=== PATIENT | female | born 1945 | race Caucasian/White ===

== ENCOUNTER 2018-11-28 07:21 | Day surgery (SDC) | payer OTHER ==
[~2018-11-28] VITALS: Ht 157.5 cm; Wt 72.8 kg
[~2018-11-28 07:21] MED LIST: ALBU2.5V5 INH; ALBU90OI6 INH; ASPI81CH PO; ASPI81EC PO; ATOR20 PO; AZIT500 PO; Aspirin EC81 MG PO; BUDE10.22 INH; CALCA500CH PO; CALCAVITD PO; CARV3.125 PO; CEFU500 PO; CEPH500 PO; Calcium + Vita1 EACH PO; DIAZ10 PO; DIGO.125 PO; Daily Multiple1 EACH PO; FISH OIL 1,0001 EAC1 PO; FISH1000 PO; FLUO10 PO; FLUO20 PO; FLUOXETINE PO; GABA300 PO; GENTLELAX119 GM PO; LISI5 PO; MAGNESIUM400 M1 PO; MAGOXI400 PO; MELO7.5 PO; MORP15ER PO; MULVITMIND PO; OXYB5 PO; OXYC15ER PO; PREG150 PO; Prozac40 MG PO; ROPI1 PO; Roxicodone15 MG PO; SLEEPING PILL PO; SPIR25 PO; TOCO400 PO; VENL75ER PO; Ventolin Soln3 ML INH; WARF6 PO; WARF7.5 PO
[2018-12-11] MEDS ORDERED: ALBU90OI INH (14:32)
== END 2018-11-28 10:07 | disposition home or self-care (01) ==
LOC: ORSCSDS 07:21
PROVIDERS: Ophthalmology
PROC: 08RJ3JZ Replacement of Right Lens with Synthetic Substitute, Percutaneous Approach (ICD-10-PCS; principal; 2018-11-28 09:00)
DX: H25.11 Age-related nuclear cataract, right eye (principal); I10 Essential (primary) hypertension; I48.91 Unspecified atrial fibrillation; M79.7 Fibromyalgia; Z87.891 Personal history of nicotine dependence; Z79.899 Other long term (current) drug therapy
CPT/HCPCS: J2001; J2250; J3010; J3301; J7120; V2632

== ENCOUNTER 2018-12-19 08:41 | Day surgery (SDC) | payer OTHER ==
[~2018-12-19] VITALS: Ht 157.5 cm; Wt 71.9 kg
[~2018-12-19 08:41] MED LIST changes: +ALBU90OI INH
--- NOTE | 2018-12-19 09:21 | NUR ---
12/19/18 0921 Rahul Vivar CALL LIGHT WITHIN REACH
== END 2018-12-19 10:24 | disposition home or self-care (01) ==
LOC: ORSCSDS 08:41
PROVIDERS: Ophthalmology
PROC: 08RK3JZ Replacement of Left Lens with Synthetic Substitute, Percutaneous Approach (ICD-10-PCS; principal; 2018-12-19 10:00)
DX: H25.12 Age-related nuclear cataract, left eye (principal); I10 Essential (primary) hypertension; Z79.01 Long term (current) use of anticoagulants; Z79.899 Other long term (current) drug therapy
CPT/HCPCS: J2250; J3010; J3301; J7040; J7120; V2632

== ENCOUNTER → 2019-01-09 | Outpatient (CLI) | payer OTHER ==
[2019-01-09 17:09] LABS: International Normalized Ratio 1.87; Prothrombin Time Results 18.7 Sec (9.7-11.5)
== END | disposition home or self-care (01) ==
LOC: LAB EV 14:22 → LAB SHORT 14:22
PROVIDERS: Physician Assistant
DX: Z79.01 Long term (current) use of anticoagulants (principal); Z51.81 Encounter for therapeutic drug level monitoring; L98.9 Disorder of the skin and subcutaneous tissue, unspecified
CPT/HCPCS: 85610; 87070; 87205

== ENCOUNTER 2019-03-13 16:41 | Emergency (ER) | payer OTHER ==
[~2019-03-13] VITALS: Ht 157.5 cm; Wt 68.0 kg
[2019-03-13 18:00] LABS: Prothrombin Time Results 78.7 Sec (9.7-11.5)
[2019-03-13 18:02] LABS: International Normalized Ratio 9.07
== END 2019-03-13 18:00 | disposition home or self-care (01) ==
LOC: ER 16:41
PROVIDERS: Physician Assistant
DX: R79.1 Abnormal coagulation profile (principal); I11.0 Hypertensive heart disease with heart failure; I50.9 Heart failure, unspecified; I48.91 Unspecified atrial fibrillation; Z87.891 Personal history of nicotine dependence
CPT/HCPCS: 36415; 85610; 96365; 99283-25; J3430

== ENCOUNTER 2020-02-25 14:20 | Emergency (ER) | payer OTHER ==
[~2020-02-25] VITALS: Ht 162.6 cm; Wt 56.7 kg
[~2020-02-25 14:20] MED LIST changes: +CEFU500T30 PO; +ROXICODONE15 MG PO
[2020-02-25 15:19] LABS: BASOPHILS ABSOLUTE AUTO 0.07 K/mm3 (0.00-0.23); BASOPHILS PERCENT AUTO 1 % (0-2); EOSINOPHILS ABSOLUTE AUTO 0.35 K/mm3 (0.00-0.68); EOSINOPHILS PERCENT AUTO 4 % (0-6); Hematocrit 44.6 % (33.0-51.0); IMMATURE GRAN ABSOLUTE AUTO 0.02 K/mm3 (0.00-0.10); IMMATURE GRAN PERCENT AUTO 0 % (0-1); LYMPHOCYTES ABSOLUTE AUTO 2.06 K/mm3 (0.84-5.20); LYMPHOCYTES PERCENT AUTO 22 % (21-46); MONOCYTES ABSOLUTE AUTO 0.48 K/mm3 (0.16-1.47); MONOCYTES PERCENT AUTO 5 % (4-13); Mean Corpuscular HGB 28.5 pg (26.0-34.0); Mean Corpuscular HGB Conc 33.6 g/dL (31.5-36.5); Mean Corpuscular Volume 85 fL (80-100); Mean Platelet Volume 10.3 fL (9.1-12.4); NEUTROPHILS ABSOLUTE AUTO 6.57 K/mm3 (1.96-9.15); NEUTROPHILS PERCENT AUTO 69 % (41-73); Platelet Count 266 K/mm3 (150-400); RDW Coefficient Variation 15.4 % (11.7-14.2); RDW Standard Deviation 47.5 fL (35.1-46.3); Red Blood Cell Count 5.26 M/mm3 (3.80-5.20); White Blood Cell Count 9.55 K/mm3 (4.00-11.30)
[2020-02-25 15:41] LABS: Alanine Aminotransfer (ALT/SGP 29 U/L (12-78); Albumin, Blood 3.8 g/dL (3.4-5.0); Albumin/Globulin Ratio 0.8 (0.8-1.8); Alk Phos 91 U/L (50-136); Anion Gap 6 mmol/L (6-16); Aspartate Aminotrans (AST/SGOT 43 U/L (12-37); Bilirubin, Total 0.6 mg/dL (0.1-1.0); Blood Urea Nitrogen 24 mg/dL (8-24); Bun/Creatinine Ratio 36.9 (12.0-20.0); CO2, Blood 28 mmol/L (21-32); Calcium, Blood 9.5 mg/dL (8.5-10.1); Chloride, Blood 102 mmol/L (98-108); Creatinine, Blood 0.65 mg/dL (0.40-1.00); Globulin, Blood 4.5 g/dL (2.2-4.0); Glomerular Filtration Rate >60 (60-); Glucose, Blood 96 mg/dL (70-99); Potassium, Blood 4.2 mmol/L (3.5-5.5); Sodium, Blood 136 mmol/L (136-145); Total Protein, Blood 8.3 g/dL (6.4-8.2); Troponin I <0.015 ng/mL (0.000-0.040)
[2020-02-25 21:39] LABS: Influenza A, PCR Negative (NEGATIVE); Influenza B, PCR Negative (NEGATIVE); Resp Syncytial Virus, PCR Negative (NEGATIVE); SARS-Cov-2 (COVID-19) PCR, MMC Negative (NEGATIVE)
[2020-02-25 22:17] LABS: Prothrombin Time Results 41.3 Sec (9.7-11.5)
[2020-02-25 22:18] LABS: International Normalized Ratio 4.19
[2020-02-25 22:32] LABS: Source, Urine Clean Catch
[2020-02-25 22:37] LABS: Appearance, Urine Clear (Clear); Bilirubin, Urine Neg (Neg); Blood, Urine 4+ (Neg); Color, Urine Yellow (P-Yellow); Glucose Qualitative, Urine Neg (Neg); Ketones, Urine 1+ (Neg); Leukocyte Esterase, Urine 3+ (Neg); Nitrite, Urine Neg (Neg); Protein, Urine 3+ (Neg); Urobilinogen, Urine NORM (Normal)
[2020-02-25] MEDS ORDERED: MUSCLE RELAXER (22:38)
[2020-02-25] MEDS ORDERED: TIZA4 (22:39)
[2020-02-25 22:44] LABS: Squamous Epithelial Cells Rare /hpf (Few)
[2020-02-25 22:45] LABS: Bacteria Rare /hpf
[2020-02-25] MEDS ORDERED: CEPH500 PO (22:54)
== END 2020-02-25 23:15 | disposition home or self-care (01) ==
LOC: ER 14:20
PROVIDERS: Emergency Medicine; Physician Assistant
DX: N39.0 Urinary tract infection, site not specified (principal); R79.1 Abnormal coagulation profile; R06.02 Shortness of breath; I48.91 Unspecified atrial fibrillation; Z20.828 Contact with and (suspected) exposure to other viral communicable diseases; Z79.01 Long term (current) use of anticoagulants; Z91.09 Other allergy status, other than to drugs and biological substances; Z79.899 Other long term (current) drug therapy
CPT/HCPCS: 0241U; 71046; 80053; 81001; 84484; 85025; 85610; 87077; 87086; 87186; 93005; 93010; 96361; 96365; 99284-25; J0696; J7030

== ENCOUNTER → 2023-08-09 | Outpatient (CLI) | payer OTHER | END | disposition home or self-care (01) | LOC: LAB SHORT 16:30 → LAB 16:30 | DX: R30.0 Dysuria (principal) ==

== ENCOUNTER 2024-05-07 11:38 | Inpatient (IN) | payer OTHER ==
[~2024-05-07] VITALS: Ht 160 cm; Wt 61.0 kg
[~2024-05-07 11:38] MED LIST changes: +MUSCLE RELAXER; +TIZA4
[2024-05-07] MEDS ORDERED: Morphine Sulfate 4 MG/1 ML Injection IV ONE (12:35)
[2024-05-07] MEDS ORDERED: XARELTO20 M1 PO (14:10)
[2024-05-07] MEDS ORDERED: OxyCODONE 5 mg/Acetamin 325 mg TABLET PO PRN (15:45)
[2024-05-07] MEDS ORDERED: QUETIAPINE FUMA25 MG PO (15:47)
[2024-05-07] MEDS ORDERED: FLU VACC TS2024-25(6MOS UP)/PF 45 MCG/0.5 ML SYRINGE IM SCH (15:50)
[2024-05-07] MEDS ORDERED: Carvedilol 3.125 MG Tab PO SCH (17:00)
[2024-05-07] MEDS ORDERED: HYDROmorphone HCl/Pf 1MG SYR IV PRN (18:45)
[2024-05-07 18:47] LABS: BASOPHILS ABSOLUTE AUTO 0.05 K/mm3 (0.00-0.23); BASOPHILS PERCENT AUTO 0 % (0-2); EOSINOPHILS ABSOLUTE AUTO 0.01 K/mm3 (0.00-0.68); EOSINOPHILS PERCENT AUTO 0 % (0-6); Hematocrit 44.8 % (33.0-51.0); Hemoglobin 14.7 g/dL (11.5-16.0); IMMATURE GRAN ABSOLUTE AUTO 0.07 K/mm3 (0.00-0.10); IMMATURE GRAN PERCENT AUTO 1 % (0-1); LYMPHOCYTES ABSOLUTE AUTO 1.48 K/mm3 (0.84-5.20); LYMPHOCYTES PERCENT AUTO 11 % (21-46); MONOCYTES ABSOLUTE AUTO 0.46 K/mm3 (0.16-1.47); MONOCYTES PERCENT AUTO 3 % (4-13); Mean Corpuscular HGB 29.6 pg (26.0-34.0); Mean Corpuscular HGB Conc 32.8 g/dL (31.5-36.5); Mean Corpuscular Volume 90 fL (80-100); Mean Platelet Volume 11.1 fL (9.1-12.4); NEUTROPHILS ABSOLUTE AUTO 11.73 K/mm3 (1.96-9.15); NEUTROPHILS PERCENT AUTO 85 % (41-73); Platelet Count 183 K/mm3 (150-400); RDW Coefficient Variation 13.8 % (11.7-14.2); RDW Standard Deviation 45.7 fL (35.1-46.3); Red Blood Cell Count 4.97 M/mm3 (3.80-5.20)
[2024-05-07 19:02] LABS: Albumin, Blood 3.8 g/dL (3.4-5.0); Albumin/Globulin Ratio 0.9 (0.8-1.8); Bilirubin, Total 0.9 mg/dL (0.1-1.0); Bun/Creatinine Ratio 29.2 (12.0-20.0); Calcium, Blood 9.4 mg/dL (8.5-10.1); Creatinine, Blood 0.93 mg/dL (0.40-1.00); Globulin, Blood 4.4 g/dL (2.2-4.0); Potassium, Blood 4.5 mmol/L (3.5-5.5); Total Protein, Blood 8.2 g/dL (6.4-8.2)
--- NOTE | 2024-05-07 19:31 | NUR ---
ARRIVAL/SHIFT SUMMARY PT BROUGHT UP FROM THE ER VIA GURNEY, SLIDER SHEET TRANSFER TO HER BED WITH 3 STAFF ASSISTANCE, PT REPORTS PAIN L HIP/ARM, CHECKED MAR AND MEDICATED PER EMAR FOR PAIN. DISCUSSED PLAN OF CARE WITH HER SON (ANNE MARIE) WHO SHE LIVES WITH AND IS HER DECISION MAKER, HX OF DEMENTIA AND IS FORGETFUL. SON STATES SHE IS USUALLY VERY ACTIVE T/O THE DAY. REPORT GIVEN TO MEHNAZ RN.
[2024-05-07 19:53] VITALS: BP 113/91
[2024-05-07] MEDS ORDERED: QUEtiapine Fumarate 50 MG TAB PO SCH (21:00)
[2024-05-07] MEDS ORDERED: QUEtiapine Fumarate 25 MG Tab PO SCH (21:00)
[2024-05-08] VITALS (23 sets, daily range): BP systolic 99–139; BP diastolic 52–117
--- NOTE | 2024-05-08 06:44 | NUR ---
SHIFT SUMMARY PT ER ADMIT AT SHIFT CHANGE FOR A LEFT HIP FRACTURE AFTER AND A GLF AT HOME. PT ALSO HAS LEFT WRIST PAIN AND SWELLING. PAIN MANAGED T/O THE NIGHT WITH MEDS PER EMAR. PT HAS BEEN NPO. PLAN IS FOR SURGERY TODAY. PUREWICK IN PLACE. PT HAS BEEN ABLE TO VOID SPONTANEOUSLY, BUT SMALL AMOUNT IN PUREWICK CANNISTER. PT HAD ONE INCONTINENT VOID AND VOIDED ABOUT 125 MLS INTO CANNISTER. BLADDER SCAN REVEALED 399 THIS AM. PT ASYMPTOMATIC. NO ABD DISTENTION, AND PT REPORTS NO DISCOMFORT OR URGE TO VOID. AFTER BLADDER SCAN PT REPORTED THAT SHE DID NOT WANT A CATHETER, AND WANTED TO SEE IF SHE CAN CONTINUE TO VOID ON HER OWN. VITALS ARE STABLE. PT HAS SOME CONFUSION AT BASELINE. BED IN LOWEST POSITION, CALL LIGHT WITHIN REACH.
[2024-05-08 06:51] LABS: BASOPHILS ABSOLUTE AUTO 0.02 K/mm3 (0.00-0.23); BASOPHILS PERCENT AUTO 0 % (0-2); EOSINOPHILS ABSOLUTE AUTO 0.05 K/mm3 (0.00-0.68); EOSINOPHILS PERCENT AUTO 1 % (0-6); Hematocrit 38.1 % (33.0-51.0); Hemoglobin 12.8 g/dL (11.5-16.0); IMMATURE GRAN ABSOLUTE AUTO 0.02 K/mm3 (0.00-0.10); IMMATURE GRAN PERCENT AUTO 0 % (0-1); LYMPHOCYTES ABSOLUTE AUTO 2.34 K/mm3 (0.84-5.20); LYMPHOCYTES PERCENT AUTO 24 % (21-46); MONOCYTES ABSOLUTE AUTO 0.71 K/mm3 (0.16-1.47); MONOCYTES PERCENT AUTO 7 % (4-13); Mean Corpuscular HGB 29.8 pg (26.0-34.0); Mean Corpuscular HGB Conc 33.6 g/dL (31.5-36.5); Mean Corpuscular Volume 89 fL (80-100); Mean Platelet Volume 11.1 fL (9.1-12.4); NEUTROPHILS ABSOLUTE AUTO 6.69 K/mm3 (1.96-9.15); NEUTROPHILS PERCENT AUTO 68 % (41-73); Platelet Count 190 K/mm3 (150-400); Red Blood Cell Count 4.29 M/mm3 (3.80-5.20); White Blood Cell Count 9.83 K/mm3 (4.00-11.30)
[2024-05-08 07:06] LABS: Albumin, Blood 3.2 g/dL (3.4-5.0); Albumin/Globulin Ratio 0.8 (0.8-1.8); Bilirubin, Total 1.1 mg/dL (0.1-1.0); Bun/Creatinine Ratio 26.8 (12.0-20.0); Calcium, Blood 9.2 mg/dL (8.5-10.1); Creatinine, Blood 0.82 mg/dL (0.40-1.00); Total Protein, Blood 7.2 g/dL (6.4-8.2)
[2024-05-08] MEDS ORDERED: CeFAZolin Sodium 2,000 MG in NS 100 ML IV SCH (08:05)
[2024-05-08] MEDS ORDERED: Tranexamic Acid 100 ML IV SCH ×2 (08:05)
[2024-05-08] MEDS ORDERED: Lisinopril 5 MG Tab PO SCH (09:00)
[2024-05-08] MEDS ORDERED: FLUoxetine HCL 20 MG CAP PO SCH (09:00)
[2024-05-08] MEDS ORDERED: Enoxaparin 40 MG/0.4 ML SYR SC SCH (09:00)
[2024-05-08] MEDS ORDERED: Lactated Ringer's 1,000 ML IV SCH ×2 (10:25→13:30)
[2024-05-08] MEDS ORDERED: Acetaminophen 325 MG TABLET PO PRN (10:25)
[2024-05-08] MEDS ORDERED: Ropivacaine 0.5% HCl/Pf 123.125 MG,EPINEPHrine HCL 0.25 MG,Ketorolac Tromethamine 15 MG... INFIL SCH (13:30)
[2024-05-08] MEDS ORDERED: Ondansetron HCl 2 MG / ML 2ML Vial ONE (13:34)
[2024-05-08] MEDS ORDERED: FentaNYL Citrate 50 MCG/ML 2 ML Injection ONE ×2 (13:34→15:30)
[2024-05-08] MEDS ORDERED: propofoL 20 ML IV ONE (13:34)
[2024-05-08] MEDS ORDERED: Ketorolac Tromethamine 30mg Vial ONE (13:34)
[2024-05-08] MEDS ORDERED: Dexamethasone Sod Phos 10 MG/ML 1ML VIAL ONE (13:34)
[2024-05-08] MEDS ORDERED: CeFAZolin Sodium 2,000 MG VIAL ONE (13:45)
--- NOTE | 2024-05-08 14:03 | NUR ---
PT INTO SDS VIA BED FOR LEFT HIP ARTHROPLASTY Patient confirms NPO status and agrees with scheduled surgery PER SURGICAL FLOOR RN. Pre-Op teaching done. Pt verbalizes understanding. History, Chart, Medications and Allergies reviewed before start of procedure. PT'S SON "MIRA" AT BS. UNSURE IF HE IS THE POA BUT IS ONLY NEXT OF KIN AND IS ON HER BANK ACCOUNT. PT W/ SOME DEMENTIA. ABLE TO STATE NAME AND BUT DOES REPEAT THINGS FREQUENTLY AND HAS A DIFFICULT TIME FINDING HER WORDS
--- NOTE | 2024-05-08 14:42 | NUR ---
PT TO OR AT ABOUT 1345, PT'S SON AT BEDSIDE
[2024-05-08] MEDS ORDERED: Rocuronium Bromide 10 MG/ML 5ML Injection IV ONE (15:08)
[2024-05-08] MEDS ORDERED: Phenylephrine HCl 100 MCG/ML-NS 10MLSYR (1MG/10ML) ONE (15:29)
--- NOTE | 2024-05-08 15:34 | NUR ---
05/08/24 1534 Amita Ramos PATIENT ARRIVED TO OR WITH PEREZ CATHETER IN PLACE.
[2024-05-08] MEDS ORDERED: Sugammadex Sodium 200 MG/2ML SDV (100 MG/ML) ONE (16:08)
[2024-05-08] MEDS ORDERED: Ipratropium/Albuterol SulF 2.5-0.5MG/3 ML Amp ONE (17:00)
[2024-05-08] MEDS ORDERED: Ipratropium/Albuterol SulF 2.5-0.5MG/3 ML Amp INH ONE (17:00)
--- NOTE | 2024-05-08 17:45 | NUR ---
PT TRANSFERED WITH DENTURES IN MOUTH
--- NOTE | 2024-05-08 19:14 | NUR ---
POST OP: REPORT RECEIVED FROM HIGH LIFT OPERATOR. PT TO UNIT AT ABOUT 1815, PT IS A/O, SURGICAL SITE WNL, SENSATION INTACT. LUNGS ARE CLEAR, SP02 98% ON 2L. HR IS TRENDING 50-160 ON BI OX, PACU REPORTED PT IN AFIB, WHICH IS PT BASELINE. HARD TO GET ACCURATE READING. PT DENIES CP, SOB. DR. RAMOS CALLED AND MADE AWARE OF THE ABOVE. OK TO GIVE 2ND DOSE OF SCHEDULED CARVEDILOL, SEE EMAR. NO TELE NEEDED AT THIS TIME. PT ABLE TO SIT UP AND EAT DINNER. PEREZ DRAINING TO GRAVITY. BED ALARM ON FOR SAFETY AND PT SON AT BEDSIDE. BEDSIDE REPORT PASSED TO ESTELA DARBY RN.
[2024-05-09] VITALS (7 sets, daily range): BP systolic 84–129; BP diastolic 43–76
--- NOTE | 2024-05-09 05:19 | NUR ---
SHIFT SUMMARY NOC. PT POD 1 FOR LEFT YURI HIP. PT A/O X3, BUT FORGETFUL. BED ALARM SET FOR SAFETY, PT DID NOT ATTEMPT TO GET OOB ALONE. PT HAS PEREZ DRAINING TO GRAVITY AND PRODUCING URINE. FLUIDS RUNNING PER EMAR. PT MEDICATED WITH TYLENOL X1 THIS SHIFT, PT REPORTED PAIN TOLERABLE. PT RESTED WITH EYES CLOSED AND CALL LIGHT IN REACH.
[2024-05-09 06:28] LABS: BASOPHILS ABSOLUTE AUTO 0.02 K/mm3 (0.00-0.23); BASOPHILS PERCENT AUTO 0 % (0-2); EOSINOPHILS PERCENT AUTO 0 % (0-6); Hematocrit 33.5 % (33.0-51.0); Hemoglobin 10.9 g/dL (11.5-16.0); IMMATURE GRAN ABSOLUTE AUTO 0.05 K/mm3 (0.00-0.10); IMMATURE GRAN PERCENT AUTO 0 % (0-1); LYMPHOCYTES ABSOLUTE AUTO 1.09 K/mm3 (0.84-5.20); LYMPHOCYTES PERCENT AUTO 7 % (21-46); MONOCYTES ABSOLUTE AUTO 0.79 K/mm3 (0.16-1.47); MONOCYTES PERCENT AUTO 5 % (4-13); Mean Corpuscular HGB 29.4 pg (26.0-34.0); Mean Corpuscular HGB Conc 32.5 g/dL (31.5-36.5); Mean Corpuscular Volume 90 fL (80-100); Mean Platelet Volume 10.6 fL (9.1-12.4); NEUTROPHILS ABSOLUTE AUTO 14.16 K/mm3 (1.96-9.15); NEUTROPHILS PERCENT AUTO 88 % (41-73); Platelet Count 140 K/mm3 (150-400); RDW Coefficient Variation 13.8 % (11.7-14.2); RDW Standard Deviation 45.9 fL (35.1-46.3); Red Blood Cell Count 3.71 M/mm3 (3.80-5.20); White Blood Cell Count 16.11 K/mm3 (4.00-11.30)
[2024-05-09 07:03] LABS: Albumin, Blood 2.6 g/dL (3.4-5.0); Albumin/Globulin Ratio 0.8 (0.8-1.8); Bilirubin, Total 0.6 mg/dL (0.1-1.0); Bun/Creatinine Ratio 27.8 (12.0-20.0); Calcium, Blood 8.5 mg/dL (8.5-10.1); Creatinine, Blood 0.97 mg/dL (0.40-1.00); Globulin, Blood 3.4 g/dL (2.2-4.0); Potassium, Blood 4.5 mmol/L (3.5-5.5)
--- NOTE | 2024-05-09 09:15 | NUR ---
DR. BRADSHAW ROUNDED ON PT. OK TO SALINE LOCK PER DR. BRADSHAW.
[2024-05-09] MEDS ORDERED: OxyCODONE HCL 5 MG TAB PO PRN (10:20)
[2024-05-09] MEDS ORDERED: Acetaminophen 500 MG Tab PO SCH (16:00)
[2024-05-09] MEDS ORDERED: Lactated Ringer's 500 ML IV ONE (16:45)
--- NOTE | 2024-05-09 19:50 | NUR ---
SHIFT SUMMARY PT IS POD#1 FROM L YURI HIP. PAIN MANAGED WITH OXY AND TYLENOL. THIS EVENING PT IS COMPLAINING OF A HEADACHE. PT NOTED TO HAVE A LOW BP OF 85/43 HR OF 84 AT 1538, NS 500ML BOLUS GIVEN. BOLUS FINISHED AT APPROXIMATELY 1905, BP REMAINS LOW 98/58, PT ASYMPTOMATIC. BEDSIDE REPORT GIVEN TO SONG DARBY RN, SONG AWARE OF CONTINUED LOW BP. CALL LIGHT WITHIN REACH.
[2024-05-10 05:00] VITALS: BP 110/61
--- NOTE | 2024-05-10 05:09 | NUR ---
SHIFT SUMMARY AMI WAS ALERT AND ORIENTED X2 ON ASSESMENT. PT DRESSING TO L HIP C/D/I, DISTAL SENSATION AND CIRCULATION INTACT. PEREZ IN PLACE DRAINING TO GRAVITY. PAIN WELL CONTROLLED. PT WAS FOUND TO HAVE PULLED OUT HER IV EARLY THIS AM. BP IS IMPROVED FROM YESTERDAY. DISCUSSING WITH ALUMINUM BOAT ASSEMBLY SUPERVISOR ABOUT NEED FOR A NEW LINE. NO OTHER EVENTS THIS SHIFT.
[2024-05-10 05:23] LABS: BASOPHILS ABSOLUTE AUTO 0.02 K/mm3 (0.00-0.23); BASOPHILS PERCENT AUTO 0 % (0-2); EOSINOPHILS ABSOLUTE AUTO 0.03 K/mm3 (0.00-0.68); EOSINOPHILS PERCENT AUTO 0 % (0-6); Hematocrit 29.6 % (33.0-51.0); Hemoglobin 9.9 g/dL (11.5-16.0); IMMATURE GRAN ABSOLUTE AUTO 0.06 K/mm3 (0.00-0.10); IMMATURE GRAN PERCENT AUTO 1 % (0-1); LYMPHOCYTES ABSOLUTE AUTO 1.99 K/mm3 (0.84-5.20); LYMPHOCYTES PERCENT AUTO 16 % (21-46); MONOCYTES ABSOLUTE AUTO 0.79 K/mm3 (0.16-1.47); MONOCYTES PERCENT AUTO 6 % (4-13); Mean Corpuscular HGB 29.9 pg (26.0-34.0); Mean Corpuscular HGB Conc 33.4 g/dL (31.5-36.5); Mean Corpuscular Volume 89 fL (80-100); Mean Platelet Volume 10.6 fL (9.1-12.4); NEUTROPHILS ABSOLUTE AUTO 9.65 K/mm3 (1.96-9.15); NEUTROPHILS PERCENT AUTO 77 % (41-73); Platelet Count 136 K/mm3 (150-400); RDW Standard Deviation 46.2 fL (35.1-46.3); Red Blood Cell Count 3.31 M/mm3 (3.80-5.20); White Blood Cell Count 12.54 K/mm3 (4.00-11.30)
[2024-05-10 05:53] LABS: Albumin, Blood 2.5 g/dL (3.4-5.0); Albumin/Globulin Ratio 0.8 (0.8-1.8); Bilirubin, Total 0.5 mg/dL (0.1-1.0); Bun/Creatinine Ratio 31.4 (12.0-20.0); Calcium, Blood 8.3 mg/dL (8.5-10.1); Creatinine, Blood 0.95 mg/dL (0.40-1.00); Globulin, Blood 3.3 g/dL (2.2-4.0); Potassium, Blood 4.3 mmol/L (3.5-5.5); Total Protein, Blood 5.8 g/dL (6.4-8.2)
[2024-05-10 07:22] VITALS: BP 131/59
[2024-05-10] MEDS ORDERED: Rivaroxaban 10 MG Tab PO SCH (09:00)
[2024-05-10] MEDS ORDERED: OXAYDO5 M1 PO (12:58)
[2024-05-10] MEDS ORDERED: XARELTO15 MG PO (13:13)
--- NOTE | 2024-05-10 13:55 | NUR ---
DISCHARGE: PT ABLE TO AMBULATE WITH THERAPY. CHRIS LAZO'D THIS AM AND PT ABLE TO VOID. DC PACKET PRINTED AND PT/PT SON EDUCATED. PT LEFT UNIT AT ABOUT 1345 VIA WHEELCHAIR WITH DEXTER DELGADO
== END 2024-05-10 13:50 | disposition home health service (06) | DRG 522 ==
LOC: ER 11:38 → SURS 15:46 → ERHOLD 15:46 → SURS 18:25
PROVIDERS: Orthopaedic Surgery Sports Medicine; ADMIT Family Medicine
PROC: 0SRS019 Replacement of Left Hip Joint, Femoral Surface with Metal Synthetic Substitute, Cemented, Open Approach (ICD-10-PCS; principal; 2024-05-08 14:30)
DX: S72.002A Fracture of unspecified part of neck of left femur, initial encounter for closed fracture (principal); I48.19 Other persistent atrial fibrillation; F03.93 Unspecified dementia, unspecified severity, with mood disturbance; F03.94 Unspecified dementia, unspecified severity, with anxiety; F41.8 Other specified anxiety disorders; J44.9 Chronic obstructive pulmonary disease, unspecified; Z66 Do not resuscitate; I50.9 Heart failure, unspecified; G89.4 Chronic pain syndrome; M19.90 Unspecified osteoarthritis, unspecified site; I11.0 Hypertensive heart disease with heart failure; M79.7 Fibromyalgia; W06.XXXA Fall from bed, initial encounter; Y92.003 Bedroom of unspecified non-institutional (private) residence as the place of occurrence of the external cause; Z79.01 Long term (current) use of anticoagulants; Z79.891 Long term (current) use of opiate analgesic; Z87.891 Personal history of nicotine dependence
CPT/HCPCS: 36415; 70450; 73090; 73110; 73502; 73562-LT; 80053; 85025; 94760; 96374; 97110; 97116; 97162; 97165; 97530; 97535; 99285-25; A9270; C1713; C1776; J0171; J0690; J0735; J1100; J1171; J1885; J2270; J2371; J2405; J2704; J2795; J3010; J7120